=== PATIENT | male | born 1965 | race Caucasian/White ===

== ENCOUNTER 2021-09-13 12:10 | Inpatient (IN) | payer OTHER ==
[~2021-09-13] VITALS: Ht 177.8 cm; Wt 109.3 kg
[~2021-09-13 12:10] MED LIST: ASPIRIN81 MG PO; AUGMENTIN 875-1 EACH PO; CLARITIN10 MG PO; CLEOCIN300 MG PO; FENOFIBRATE48 MG PO; IBUPROFEN800 MG PO; LEVAQUIN500 MG PO; LIPITOR20 MG PO; MEDROL 4MG DOSEP4 MG PO; METFORMIN HCL500 MG PO; NORCO 5-325 TA1 EACH PO; NORVASC2.5 MG PO; PLAVIX75 MG PO; PRILOSEC20 MG PO; PRINIVIL20 MG PO; PROTONIX 40MG T40 MG PO; REVATIO 20MG TA20 MG PO
[2021-09-13 13:06] LABS: BASOPHIL 0.4 % (0-2); EOSINOPHIL 0 % (0-5); HGB 16.3 g/dl (13.2-18.0); LYMPHOCYTE 17.8 % (15-48); MCH 29.7 pg (25.0-31.0); MCHC 32.6 g/dL (32.0-36.0); MCV 91.2 fL (78.0-100.0); MONOCYTE 9.7 % (0-12); MPV 11.4 fL (6.0-9.5); NEUTROPHIL 71.7 % (41-80); NRBC 0; PLT 165 K/uL (150-400); RBC 5.48 M/uL (4.70-6.00); RDW 13.9 % (11.5-14.0); WBC 4.7 K/uL (4.0-10.5)
[2021-09-13 13:21] LABS: ALBUMIN 3.1 g/dL (3.4-5.0); BILIRUBIN - TOTAL 0.4 mg/dL (0.2-1.0); BUN/CREAT RATIO (CALC) 17.1 RATIO; C-REACTIVE PROTEIN 14.9 mg/dL (<=0.90); CREATININE 1.4 mg/dL (0.67-1.17); GLOBULIN (CALCULATION) 4.8 g/dL; POTASSIUM 4.7 mmol/L (3.5-5.1); TOTAL PROTEIN 7.9 g/dL (6.4-8.2)
[2021-09-13 13:37] LABS: LACTIC ACID 4.1 mmol/L (0.4-1.9)
[2021-09-13 13:49] LABS: INFLUENZA A NAA NEGATIVE (NEGATIVE)
[2021-09-13 13:52] LABS: CORONAVIRUS 2019 SARS-COV-2 POSITIVE (NEGATIVE)
[2021-09-13 14:44] LABS: BILIRUBIN NEGATIVE (NEGATIVE); BLOOD TRACE-INTACT Ery/uL (NEGATIVE); CLARITY CLEAR (CLEAR); COLOR YELLOW (YELLOW); GLUCOSE (U) 1+ mg/dL (NORMAL); LEUKOCYTES NEGATIVE Leu/uL (NEGATIVE); NITRITE NEGATIVE (NEGATIVE); PROTEIN 1+ mg/dL (NEGATIVE)
[2021-09-13 15:24] LABS: URINARY WBC RARE
[2021-09-13 15:25] LABS: SQUAMOUS EPITHELIAL CELLS RARE
[2021-09-13] MEDS ORDERED: OZEMPIC1 MG/0.71 SC (18:28)
[2021-09-13] MEDS ORDERED: LOPRESSOR50 MG PO (18:28)
[2021-09-13] MEDS ORDERED: PROTONIX 40MG T40 MG PO (18:29)
[2021-09-13] MEDS ORDERED: CRESTOR40 MG PO (18:29)
[2021-09-13 18:41] LABS: BUN/CREAT RATIO (CALC) 17.4 RATIO; CREATININE 1.09 mg/dL (0.67-1.17); POTASSIUM 4.4 mmol/L (3.5-5.1)
[2021-09-14 06:06] LABS: BASOPHIL 0 % (0-2); EOSINOPHIL 0 % (0-5); HCT 42.5 % (42.0-52.0); HGB 13.8 g/dl (13.2-18.0); LYMPHOCYTE 20.6 % (15-48); MCH 29.2 pg (25.0-31.0); MCHC 32.5 g/dL (32.0-36.0); MCV 89.9 fL (78.0-100.0); MONOCYTE 8.7 % (0-12); MPV 10.7 fL (6.0-9.5); NRBC 0; PLT 154 K/uL (150-400); RBC 4.73 M/uL (4.70-6.00); WBC 2.9 K/uL (4.0-10.5)
[2021-09-14 07:01] LABS: BUN/CREAT RATIO (CALC) 21.2 RATIO; C-REACTIVE PROTEIN 14.5 mg/dL (<=0.90); CREATININE 0.85 mg/dL (0.67-1.17); POTASSIUM 4.3 mmol/L (3.5-5.1)
--- NOTE | 2021-09-14 16:00 | NUR ---
MD WENT TO ASSESS AND TALK TO THE PATIENT ONCE HE WAS MOVED TO ICU. HE NOTICED PT HAD VERY LABORED BREATHING AND TALKED TO HIM ABOUT INTUBATION. PT WAS IN AGREEANCE WITH THIS CHOICE. RT WAS CALLED AND GLIDESCOPE WAS BROUGHT. 1635 ETOMIDATE 20MG ADMINISTERED ALONG WITH 100 OF SUCCINYLCHOLINE. PT WAS STILL MOVING SO ANOTHER 20MG OF ETOMIDATE AND 50MG OF SUCCINYLCHOLINE WERE GIVEN AT 1639. PT WAS SUCCESSFULLY INTUBATED AT 1635 WITH A 7.5 ET TUBE 24CM AT LIP. 5MG VERSED, 50MCG OF FENTANYL, AND 10MG OF VECURONIUM WERE ADMINISTERED BECAUSE PT WAS STILL BREATHING OVER THE VENT. FENTANYL GTT STARTED AT 25MCG/HR AND VERSED GTT AT 3MG/HR AT 1645. OG WAS PLACED AND VERIFIED BY ASCULTATION ONCE MD WAS DONE INTUBATING. 1655 ARTERIAL LINE WAS PLACED IN RIGHT RADIAL. DR. STOLL USED LIDOCAINE FOR THE SITE AND WAS SUCCESSFUL ON THE FIRST ATTEMPT WITH A GOOD ARTERIAL LINE WAVEFORM. 1710 SUPPLIES FOR CENTRAL LIKE WERE GATHERED. DR. STOLL PLACED A CENTRAL LINE TO THE LEFT IJ WITHOUT DIFFICULTY. ET TUBE, OG, AND CENTRAL LINE WERE ALL VERIFIED TO BE IN CORRECT PLACEMENT BY CHEST XRAY. THROUGH THE EVENTS OF THE A-LINE AND CENTRAL LINE BEING PLACED, PT WAS VERY HYPERTENSIVE 200s/100s. SEDATION WAS TITRATED TO A COMFORTABLE LEVEL WHERE FENTANLY IS AT 250MCG/HR AND VERSED IS AT 8MG/HR. PT RESTING PEACEFULLY AT THIS ITME TAYLOR CATH PLACED ONCE ALL OTHER LINES WERE PLACED.
[2021-09-15 04:27] LABS: BASOPHIL 0 % (0-2); EOSINOPHIL 0 % (0-5); HCT 39.2 % (42.0-52.0); HGB 12.4 g/dl (13.2-18.0); MCH 29.3 pg (25.0-31.0); MCHC 31.6 g/dL (32.0-36.0); MCV 92.7 fL (78.0-100.0); MONOCYTE 6.1 % (0-12); MPV 10.7 fL (6.0-9.5); NEUTROPHIL 74.6 % (41-80); NRBC 0; PLT 180 K/uL (150-400); RBC 4.23 M/uL (4.70-6.00); RDW 14.4 % (11.5-14.0); WBC 3.6 K/uL (4.0-10.5)
[2021-09-15 04:48] LABS: LYMPHOCYTE 18.7 % (15-48)
[2021-09-15 04:49] LABS: BUN/CREAT RATIO (CALC) 25.6 RATIO; C-REACTIVE PROTEIN 7.5 mg/dL (<=0.90); CREATININE 0.9 mg/dL (0.67-1.17); MAGNESIUM 2.7 mg/dL (1.8-2.4); POTASSIUM 4.8 mmol/L (3.5-5.1)
--- NOTE | 2021-09-15 19:52 | NUR ---
1500 PT WAS PRONED WITH 5 RN AND RT AT THE HEAD OF THE BED, PT TOLERATED TURN WELL, SATS IMPROVED FROM 88/89% TO 99%
[2021-09-16 05:53] LABS: BASOPHIL 0 % (0-2); EOSINOPHIL 0 % (0-5); HCT 36.2 % (42.0-52.0); HGB 11.3 g/dl (13.2-18.0); LYMPHOCYTE 9.5 % (15-48); MCHC 31.2 g/dL (32.0-36.0); MONOCYTE 6.2 % (0-12); MPV 11.2 fL (6.0-9.5); NEUTROPHIL 83.3 % (41-80); NRBC 0; PLT 222 K/uL (150-400); RBC 3.77 M/uL (4.70-6.00); RDW 14.6 % (11.5-14.0)
[2021-09-16 05:58] LABS: WBC 5.8 K/uL (4.0-10.5)
[2021-09-16 06:26] LABS: ALBUMIN 1.8 g/dL (3.4-5.0); BILIRUBIN - TOTAL 0.1 mg/dL (0.2-1.0); CREATININE 0.8 mg/dL (0.67-1.17); GLOBULIN (CALCULATION) 3.3 g/dL; POTASSIUM 5.2 mmol/L (3.5-5.1)
[2021-09-16 06:27] LABS: TOTAL PROTEIN 5.1 g/dL (6.4-8.2)
[2021-09-17 06:00] LABS: BASOPHIL 0.2 % (0-2); EOSINOPHIL 0 % (0-5); HCT 36.3 % (42.0-52.0); HGB 11.2 g/dl (13.2-18.0); LYMPHOCYTE 7.3 % (15-48); MCH 29.6 pg (25.0-31.0); MCHC 30.9 g/dL (32.0-36.0); MCV 95.8 fL (78.0-100.0); MONOCYTE 5.8 % (0-12); NEUTROPHIL 85.1 % (41-80); NRBC 0; PLT 274 K/uL (150-400); RBC 3.79 M/uL (4.70-6.00); RDW 14.6 % (11.5-14.0)
[2021-09-17 06:10] LABS: ALBUMIN 1.9 g/dL (3.4-5.0); BILIRUBIN - TOTAL 0.1 mg/dL (0.2-1.0); BUN/CREAT RATIO (CALC) 29.6 RATIO; CREATININE 0.71 mg/dL (0.67-1.17); TOTAL PROTEIN 4.9 g/dL (6.4-8.2)
[2021-09-17 06:13] LABS: WBC 5.7 K/uL (4.0-10.5)
--- NOTE | 2021-09-17 17:05 | NUR ---
09/17/21 Will monitor for discharge planning needs.
[2021-09-18 05:42] LABS: BASOPHIL 0.2 % (0-2); EOSINOPHIL 0 % (0-5); HCT 35.3 % (42.0-52.0); HGB 11.2 g/dl (13.2-18.0); LYMPHOCYTE 4.5 % (15-48); MCH 29.6 pg (25.0-31.0); MCHC 31.7 g/dL (32.0-36.0); MCV 93.1 fL (78.0-100.0); MONOCYTE 4.3 % (0-12); MPV 10.6 fL (6.0-9.5); NRBC 0; PLT 299 K/uL (150-400); RBC 3.79 M/uL (4.70-6.00); RDW 14.4 % (11.5-14.0); WBC 6.5 K/uL (4.0-10.5)
[2021-09-18 08:36] LABS: BILIRUBIN - TOTAL 0.3 mg/dL (0.2-1.0); BUN/CREAT RATIO (CALC) 31.9 RATIO; CREATININE 0.69 mg/dL (0.67-1.17); GLOBULIN (CALCULATION) 3.1 g/dL; POTASSIUM 4.9 mmol/L (3.5-5.1); TOTAL PROTEIN 5.1 g/dL (6.4-8.2)
--- NOTE | 2021-09-18 18:46 | NUR ---
1845 PT WAS PRONED, 4RN AND RT AT HEAD OF THE BED.PT TOLERATED TURN WELL SATS INCREASED TO 96%.
[2021-09-19 05:59] LABS: BASOPHIL 0 % (0-2); EOSINOPHIL 0 % (0-5); HCT 35.9 % (42.0-52.0); HGB 11.4 g/dl (13.2-18.0); LYMPHOCYTE 4.7 % (15-48); MCH 29.8 pg (25.0-31.0); MCHC 31.8 g/dL (32.0-36.0); MCV 93.7 fL (78.0-100.0); MONOCYTE 3.5 % (0-12); MPV 10.9 fL (6.0-9.5); NEUTROPHIL 89.2 % (41-80); NRBC 0; PLT 315 K/uL (150-400); RBC 3.83 M/uL (4.70-6.00); RDW 14.4 % (11.5-14.0); WBC 5.7 K/uL (4.0-10.5)
[2021-09-19 06:30] LABS: CREATININE 0.62 mg/dL (0.67-1.17)
[2021-09-19 17:36] LABS: BUN/CREAT RATIO (CALC) 31.8 RATIO; CREATININE 0.66 mg/dL (0.67-1.17); MAGNESIUM 3.1 mg/dL (1.8-2.4); POTASSIUM 4.9 mmol/L (3.5-5.1)
--- NOTE | 2021-09-19 18:30 | NUR ---
ORDERED SEDATION VACATION FOR THIS DATE. SEDATION WAS TURNED DOWN AND PATIENT WAS ABLE TO MOVE LIMBS BUT WOULD NOT FOLLOW COMMANDS. BELIEVE THAT PATIENT NEEDED MORE TIME TO COME TO. SEDATION WAS TURNED BACK ON AND PATIENT WAS ORDERED TO BE PRONED SOON STAFF WAS ABLE TO. STARTED DIPRIVAN INSTEAD OF VERSED. PATIENT IS COMFORTABLE AND NOT RESTLESS.
[2021-09-20 05:23] LABS: BASOPHIL 0.2 % (0-2); EOSINOPHIL 0 % (0-5); HCT 35.3 % (42.0-52.0); LYMPHOCYTE 4.1 % (15-48); MCHC 31.2 g/dL (32.0-36.0); MCV 96.2 fL (78.0-100.0); MONOCYTE 6.3 % (0-12); MPV 10.9 fL (6.0-9.5); NEUTROPHIL 81.7 % (41-80); NRBC 0; PLT 341 K/uL (150-400); RBC 3.67 M/uL (4.70-6.00); RDW 14.6 % (11.5-14.0)
[2021-09-20 05:33] LABS: WBC 5.4 K/uL (4.0-10.5)
[2021-09-20 05:52] LABS: BUN/CREAT RATIO (CALC) 37.5 RATIO; CREATININE 0.64 mg/dL (0.67-1.17); POTASSIUM 5.3 mmol/L (3.5-5.1)
[2021-09-20 15:27] LABS: BUN/CREAT RATIO (CALC) 40.3 RATIO; CREATININE 0.67 mg/dL (0.67-1.17)
--- NOTE | 2021-09-20 17:54 | NUR ---
1645 PT WAS PRONED WITH 3RN AND 2 RT, STEPHY RT AT HEAD OF THE BED. PT TOLERATED THE TURN WELL. BP 153/79,70,25, 94%
[2021-09-21 04:53] LABS: BASOPHIL 0.3 % (0-2); EOSINOPHIL 0.1 % (0-5); HCT 42.7 % (42.0-52.0); LYMPHOCYTE 4.3 % (15-48); MCH 29.3 pg (25.0-31.0); MCHC 30.4 g/dL (32.0-36.0); MCV 96.4 fL (78.0-100.0); MPV 10.8 fL (6.0-9.5); NRBC 0.3; PLT 423 K/uL (150-400); RBC 4.43 M/uL (4.70-6.00); RDW 14.6 % (11.5-14.0)
[2021-09-21 05:06] LABS: BUN/CREAT RATIO (CALC) 43.3 RATIO; CREATININE 0.67 mg/dL (0.67-1.17); POTASSIUM 4.9 mmol/L (3.5-5.1)
--- NOTE | 2021-09-21 19:44 | NUR ---
1210 4 RN AND RT RETURNED PT BACK IN SUPINE, PT TOLERATED WELL
[2021-09-22 04:41] LABS: BASOPHIL 0.3 % (0-2); EOSINOPHIL 0.5 % (0-5); HCT 36.1 % (42.0-52.0); HGB 11.2 g/dl (13.2-18.0); LYMPHOCYTE 4.3 % (15-48); MCH 30.1 pg (25.0-31.0); MONOCYTE 4.8 % (0-12); NEUTROPHIL 86.7 % (41-80); NRBC 0; PLT 310 K/uL (150-400); RBC 3.72 M/uL (4.70-6.00); RDW 14.6 % (11.5-14.0); WBC 6.5 K/uL (4.0-10.5)
[2021-09-22 05:12] LABS: BUN/CREAT RATIO (CALC) 39.7 RATIO; C-REACTIVE PROTEIN 13.4 mg/dL (<=0.90); CREATININE 0.63 mg/dL (0.67-1.17); POTASSIUM 4.7 mmol/L (3.5-5.1)
[2021-09-23 03:28] LABS: BASOPHIL 0.1 % (0-2); EOSINOPHIL 0.8 % (0-5); HCT 34.9 % (42.0-52.0); HGB 10.6 g/dl (13.2-18.0); LYMPHOCYTE 5.1 % (15-48); MCH 29.3 pg (25.0-31.0); MCHC 30.4 g/dL (32.0-36.0); MCV 96.4 fL (78.0-100.0); MPV 10.9 fL (6.0-9.5); NEUTROPHIL 88.5 % (41-80); NRBC 0; PLT 236 K/uL (150-400); RBC 3.62 M/uL (4.70-6.00); RDW 14.4 % (11.5-14.0); WBC 9.6 K/uL (4.0-10.5)
[2021-09-23 03:46] LABS: BUN/CREAT RATIO (CALC) 31.2 RATIO; CREATININE 0.64 mg/dL (0.67-1.17); POTASSIUM 4.7 mmol/L (3.5-5.1)
[2021-09-23 10:06] LABS: LACTIC ACID 0.8 mmol/L (0.4-1.9)
[2021-09-23 14:32] LABS: HGB 10.5 g/dL (13.2-18.0)
--- NOTE | 2021-09-23 19:04 | NUR ---
PRONED PATIENT 1715 WITH RT AT BEDSIDE AND 3 RN TO ASSIST. PATIENT WAS REPOSITIONED. TUBE REMAINED IN PLACE. PLACEMENT CONFIRMED AND HOOKED BACK UP TO MONITOR AND BIS. VEC WAS TURNED ON. NO COMPLICATIONS OCCURRED.
[2021-09-24 03:47] LABS: BASOPHIL 0.2 % (0-2); EOSINOPHIL 0.9 % (0-5); HCT 34.3 % (42.0-52.0); HGB 10.3 g/dl (13.2-18.0); LYMPHOCYTE 8.9 % (15-48); MCH 29.4 pg (25.0-31.0); MONOCYTE 5.5 % (0-12); NEUTROPHIL 82.9 % (41-80); NRBC 0; PLT 210 K/uL (150-400); RDW 14.4 % (11.5-14.0); WBC 11.6 K/uL (4.0-10.5)
[2021-09-24 03:59] LABS: BUN/CREAT RATIO (CALC) 33.3 RATIO; CREATININE 0.66 mg/dL (0.67-1.17)
[2021-09-24 16:51] LABS: BUN/CREAT RATIO (CALC) 27.3 RATIO; CREATININE 0.77 mg/dL (0.67-1.17)
--- NOTE | 2021-09-24 19:37 | NUR ---
PT WENT INTO [facility]TER CONFIRMED WITH EKG, CARD CONSULT WITH ORDERS TO START CARDIZEM GTT,STARTED AT 10MG WITH NO HELP WITH HEART RATE INCREASED TO 15MG/HR STILL NO HELP. CHANGED TO AMIO WITH 150MG BOLUS THEN DRIP AT 33.3ML/HR. HEART RATE CONTINUED TO BE IN THE [address] ARTHUR HE ORDER LOPRESSSER 5 MG IV. PT DID CONVERT TO NSR AROUND 1834 TONIGHT EKG CONFIRMED
[2021-09-25 04:29] LABS: BASOPHIL 0.1 % (0-2); EOSINOPHIL 0.5 % (0-5); HCT 32.9 % (42.0-52.0); HGB 9.9 g/dl (13.2-18.0); LYMPHOCYTE 5.7 % (15-48); MCHC 30.1 g/dL (32.0-36.0); MCV 96.5 fL (78.0-100.0); MONOCYTE 6.8 % (0-12); MPV 10.7 fL (6.0-9.5); NEUTROPHIL 85.2 % (41-80); NRBC 0; PLT 181 K/uL (150-400); RBC 3.41 M/uL (4.70-6.00); RDW 14.6 % (11.5-14.0); WBC 12.6 K/uL (4.0-10.5)
[2021-09-25 05:23] LABS: BUN/CREAT RATIO (CALC) 30.2 RATIO; CREATININE 0.63 mg/dL (0.67-1.17)
--- NOTE | 2021-09-25 18:26 | NUR ---
1730 PT WAS PRONED 4 RN AND STEPHY RT AT THE HEAD OF THE BED. PT TOLERATED THE TURN WELL.O2 SAT 94%.BP 158/76, HR 86
--- NOTE | 2021-09-26 13:31 | NUR ---
PATIENT WAS SUPINED AT 1030 WITH RT AT BEDSIDE. PATIENT TOLERATED WELL. ADJUSTED PATIET IN BED AND RESTRAINTS PLACED. TUBE FEEDS ARE RESUMED. SUCTIONED LARGE AMOUNT OF BLOOD FROM PATIENT NOSE THIS MORNING. DR STOLL MADE AWARE OF SITUATION. ORDERED TO NOT PRONE TODAY. WILL RE-EVALUATE TOMORROW.
--- NOTE | 2021-09-26 19:31 | NUR ---
TITRATED PATIENT SEDATION DIPRIVAN- 30MCG/19.3ML TO 25MCG/16.1 FENTANYL- 200MCG/20ML TO 150MCG/15ML PATIENT BP ELEVATED AND REQUIRED METOPROLOL 50MG AT 1550 BP:201/86 106 TO 166/82 102 92% WAS MADE AWARE OF SITUATION. BP ELEVATED AT TWO SEPERATE TIMES AND APRESOLINE 10MG Q6PRN WAS ADDED TO EMAR PRESSURE STABILIZED TO 127/62 79 BY END OF SHIFT.
[2021-09-27 04:20] LABS: BASOPHIL 0.1 % (0-2); EOSINOPHIL 0.4 % (0-5); HGB 8.3 g/dl (13.2-18.0); LYMPHOCYTE 4.3 % (15-48); MCH 29.7 pg (25.0-31.0); MCHC 30.7 g/dL (32.0-36.0); MCV 96.8 fL (78.0-100.0); NEUTROPHIL 87.7 % (41-80); NRBC 0.2; PLT 157 K/uL (150-400); RBC 2.79 M/uL (4.70-6.00); RDW 14.9 % (11.5-14.0); WBC 12.8 K/uL (4.0-10.5)
[2021-09-27 04:28] LABS: ALBUMIN 0.9 g/dL (3.4-5.0); ALKALINE PHOSHATASE 85 U/L (46-116); ALT 20 U/L (16-63); AST 28 U/L (15-37); BILIRUBIN - TOTAL 0.6 mg/dL (0.2-1.0); BUN 20 mg/dL (7-18); BUN/CREAT RATIO (CALC) 29.4 RATIO; C-REACTIVE PROTEIN > 18.00 mg/dL (<=0.90); CHLORIDE 110 mmol/L (98-107); CO2 (BICARBONATE) 31 mmol/L (21-32); CREATININE 0.68 mg/dL (0.67-1.17); GLOBULIN (CALCULATION) 3.4 g/dL; GLUCOSE 118 mg/dL (74-106); MAGNESIUM 2.5 mg/dL (1.8-2.4); POTASSIUM 3.4 mmol/L (3.5-5.1); TOTAL PROTEIN 4.3 g/dL (6.4-8.2)
[2021-09-28 06:53] LABS: BUN/CREAT RATIO (CALC) 25.3 RATIO; CREATININE 0.87 mg/dL (0.67-1.17); POTASSIUM 4.2 mmol/L (3.5-5.1)
[2021-09-28 08:53] LABS: BILIRUBIN NEGATIVE (NEGATIVE); BLOOD 1+ Ery/uL (NEGATIVE); CLARITY CLEAR (CLEAR); COLOR YELLOW (YELLOW); GLUCOSE (U) NORMAL (NORMAL); LEUKOCYTES NEGATIVE Leu/uL (NEGATIVE); NITRITE NEGATIVE (NEGATIVE); PROTEIN TRACE (LOW) mg/dL (NEGATIVE); UROBILINOGEN 0.2 mg/dL (0.2-1.0)
[2021-09-28 09:01] LABS: BASOPHIL 0.1 % (0-2); EOSINOPHIL 0.5 % (0-5); HCT 29.7 % (42.0-52.0); HGB 8.9 g/dl (13.2-18.0); LYMPHOCYTE 4.6 % (15-48); MCH 29.5 pg (25.0-31.0); MCV 98.3 fL (78.0-100.0); MONOCYTE 5.7 % (0-12); NEUTROPHIL 86.9 % (41-80); NRBC 0; PLT 163 K/uL (150-400); RBC 3.02 M/uL (4.70-6.00); RDW 15.4 % (11.5-14.0); WBC 13.6 K/uL (4.0-10.5)
[2021-09-28 09:13] LABS: AMORPHOUS URATES CRYSTALS TRACE; URINARY RBC RARE; URINARY WBC RARE
--- NOTE | 2021-09-28 18:02 | NUR ---
PT PRONED WITH ASSIST OF VINYL TOP INSTALLER AND RT WELL THIS NURSE AND 2 OTHER NURSES, PT TOLERATED WELL AND WILL CONTINUE TO MONITOR STATUS
[2021-09-29 06:12] LABS: BASOPHIL 0.4 % (0-2); EOSINOPHIL 1.1 % (0-5); HCT 29.9 % (42.0-52.0); LYMPHOCYTE 6.2 % (15-48); MCH 29.6 pg (25.0-31.0); MCHC 30.1 g/dL (32.0-36.0); MCV 98.4 fL (78.0-100.0); MONOCYTE 4.6 % (0-12); NEUTROPHIL 85.9 % (41-80); NRBC 0.4; PLT 158 K/uL (150-400); RBC 3.04 M/uL (4.70-6.00); RDW 15.6 % (11.5-14.0); WBC 8.1 K/uL (4.0-10.5)
[2021-09-29 06:45] LABS: BILIRUBIN - TOTAL 0.6 mg/dL (0.2-1.0); BUN/CREAT RATIO (CALC) 32.9 RATIO; CREATININE 0.79 mg/dL (0.67-1.17); GLOBULIN (CALCULATION) 4.9 g/dL; POTASSIUM 4.8 mmol/L (3.5-5.1); TOTAL PROTEIN 5.9 g/dL (6.4-8.2)
--- NOTE | 2021-09-29 10:52 | NUR ---
1015 PT TURNED BACK TO SUPINE POSITION, RT AT THE HEAD OF BED AND 5 RNS TO POSITION. MD STOLL SAID TO TURN OFF THR VECURONIUM. OFF AT 1030
[2021-10-01 06:27] LABS: BASOPHIL 0.3 % (0-2); EOSINOPHIL 0.6 % (0-5); HCT 32.1 % (42.0-52.0); HGB 9.5 g/dl (13.2-18.0); LYMPHOCYTE 4.7 % (15-48); MCH 29.8 pg (25.0-31.0); MCHC 29.6 g/dL (32.0-36.0); MCV 100.6 fL (78.0-100.0); MPV 10.9 fL (6.0-9.5); NEUTROPHIL 89.6 % (41-80); NRBC 0.5; PLT 161 K/uL (150-400); RBC 3.19 M/uL (4.70-6.00); RDW 15.8 % (11.5-14.0)
[2021-10-01 06:30] LABS: WBC 15.6 K/uL (4.0-10.5)
[2021-10-01 06:51] LABS: ALBUMIN 1.3 g/dL (3.4-5.0); BILIRUBIN - TOTAL 0.3 mg/dL (0.2-1.0); BUN/CREAT RATIO (CALC) 32.1 RATIO; C-REACTIVE PROTEIN 6.3 mg/dL (<=0.90); CREATININE 0.81 mg/dL (0.67-1.17); GLOBULIN (CALCULATION) 3.9 g/dL; MAGNESIUM 2.1 mg/dL (1.8-2.4); POTASSIUM 4.6 mmol/L (3.5-5.1); TOTAL PROTEIN 5.2 g/dL (6.4-8.2)
[2021-10-02 06:00] LABS: BASOPHIL 0.3 % (0-2); EOSINOPHIL 1.2 % (0-5); HCT 29.9 % (42.0-52.0); HGB 8.9 g/dl (13.2-18.0); LYMPHOCYTE 7.1 % (15-48); MCH 29.8 pg (25.0-31.0); MCHC 29.8 g/dL (32.0-36.0); MONOCYTE 4.8 % (0-12); MPV 10.7 fL (6.0-9.5); NEUTROPHIL 85.2 % (41-80); NRBC 0.8; PLT 147 K/uL (150-400); RBC 2.99 M/uL (4.70-6.00); RDW 15.8 % (11.5-14.0); WBC 12.6 K/uL (4.0-10.5)
[2021-10-02 06:27] LABS: ALBUMIN 1.4 g/dL (3.4-5.0); BILIRUBIN - TOTAL 0.4 mg/dL (0.2-1.0); BUN/CREAT RATIO (CALC) 41.8 RATIO; CREATININE 0.79 mg/dL (0.67-1.17); GLOBULIN (CALCULATION) 3.7 g/dL; POTASSIUM 3.9 mmol/L (3.5-5.1); TOTAL PROTEIN 5.1 g/dL (6.4-8.2)
--- NOTE | 2021-10-02 18:09 | NUR ---
1600 PT PRONED 4 RN AND RT AT THE HEAD OF BED. 1700 PT VENTILATOR STARTED ALARMING FOR DISCONNECTED ALRAM , MYSELF AND TYRESE RT WAS IN THE RM SATS WAS ONLY DROPPED TO 91%. WE THEN CHANGED HIS POSITION BACK TO SUPINE. REPOSOITIONED HIS ET TUBE. AND GOT A CHEST XRAY. MD ARTHUR SAID TO ADVANCE THE TUBE. RELOOKED AT CHEST XRAY, COULD SEE TUBE ON XRAY. YUKO SAID SHE DIDNT THINK THE BALOON WAS INFALATING ALL THE WAS SO DR ARTHUR REPLACED ET TUBE WITH A BOUGE.PLACED A 7.5 ET TUBE 23 AT THE LIP VERFIED PLACEMENT WITH COLOR CHANGE AND CHEST XRAY.
--- NOTE | 2021-10-03 02:34 | NUR ---
10/02/21 2100: PT NOTED TO BEGIN DESATTING WHILE ON VENT FROM 85%-87%. PREVIOUSLY PT SAT RANGED FROM 88-89%. BLOOD PRESSURE ALSO BEGGING TO DOWN AT 88/53 (63). CATHERINE JI APRN NOTIFIED OF CURRENT VITAL SIGNS AND CAME OVER TO ICU TO ASSESS PATIENT. ORDERED FOR RT TO GIVE PRN INHALERS. 215: VITAL SIGNS B/P 90/48, HR 112, RR 30, SAT 85%. 222: VITAL SIGNS B/P 56/31, HR 97, RR 30, SAT 83% 2245: PT WENT INTO ASYSTOLE, CODE BUTTON HIT. AED HOOKED UP, CPR IMMEDIATLY STARTED. 1ST DOSE EPI GIVEN 2247: PULSE CHECK. ASYSTOLE. RESTART CPR. 2248: 2ND DOSE EPI GIVEN. 2249: PULSE CHECK. CARDIAC MONINTOR SHOWS ST. HR 150'S. B/P 220/130 FAMILY NOTIFIED DURING CODE VIA MED SURG NURSE. TRAINING AND QUALITY MANAGER AT BEDSIDE DURING CODE. CINDER SNAPPER NOTIFIED. 2331: VITAL SIGNS 53/28, HR 78, RR 30, SAT 82 2333: PT GOES BACK INTO ASYSTOLE. CODE BUTTON PUSHED. CPR STARTED. 1ST DOSE EPI GIVEN. AED STILL ATTACHED. 2335: PULSE CHECK. NO PULSE, MONITOR SHOWS OEA. RESTART CPR. 2336: 2ND DOSE OF EPI GIVEN. 2337: PULSE CHECK. SVT 160'S. B/P 198/98 2340: ART LINE PLACED VIA ED DOCTOR. LEVOPHED/EPI GTT STARTED. FAMILY NOTIFIED OF SECOND ROUND OF CPR VIA MED SURG NURSE. 2351: VITAL SIGNS B/P 67/21, HR 64. RR 30, SAT 43%. 0001: PT GOES BACK INTO ASYSTOLE. CALLED PER MEDSURG NURSE. 1ST DOSE OF EPI GIVEN. 0003: PULSE CHECK. ASYSTOLE. 0004. PT'S REQUESTED CODE TO BE STOPPED AT THIS TIME. 0005 PT PRONOUNCED BY CATHERINE JI APRN. [place] NOTIFIED, RULE OUT DUE TO COVID. [facility] NOTIFIED. PATIENT CLEANED UP. ARRIVES AT BEDSIDE AT APPROXIATLY 0115. ALL BELONGINGS SENT WITH . HOME ARRIVES AT 0215. PT LEAVES W/ HOME AT 0225.
== END 2021-10-03 02:21 | disposition expired | DRG 870 ==
LOC: FER 12:10 → FICU 14:59 → FTCU 14:59 → FICU 09-14 10:39
PROVIDERS: Emergency Medicine; Family Medicine; Internal Medicine; ADMIT Allergy & Immunology Allergy
PROC: 02HV33Z Insertion of Infusion Device into Superior Vena Cava, Percutaneous Approach (ICD-10-PCS; principal; 2021-09-14)
PROC: 5A1955Z Respiratory Ventilation, Greater than 96 Consecutive Hours (ICD-10-PCS; 2021-09-14)
PROC: 8E0ZXY6 Isolation (ICD-10-PCS; 2021-09-14)
PROC: XW033E5 Introduction of Remdesivir Anti-infective into Peripheral Vein, Percutaneous Approach, New Technology Group 5 (ICD-10-PCS; 2021-09-14)
PROC: 3E0333Z Introduction of Anti-inflammatory into Peripheral Vein, Percutaneous Approach (ICD-10-PCS; 2021-09-14)
PROC: XW0DXM6 Introduction of Baricitinib into Mouth and Pharynx, External Approach, New Technology Group 6 (ICD-10-PCS; 2021-09-14)
PROC: 0BH17EZ Insertion of Endotracheal Airway into Trachea, Via Natural or Artificial Opening (ICD-10-PCS; 2021-09-14)
PROC: 03HY32Z Insertion of Monitoring Device into Upper Artery, Percutaneous Approach (ICD-10-PCS; 2021-09-14)
PROC: XW033H5 Introduction of Tocilizumab into Peripheral Vein, Percutaneous Approach, New Technology Group 5 (ICD-10-PCS; 2021-09-14)
PROC: 3E033XZ Introduction of Vasopressor into Peripheral Vein, Percutaneous Approach (ICD-10-PCS; 2021-09-29)
PROC: B24BZZZ Ultrasonography of Heart with Aorta (ICD-10-PCS; 2021-10-01)
PROC: 02HV33Z Insertion of Infusion Device into Superior Vena Cava, Percutaneous Approach (ICD-10-PCS; 2021-10-02)
PROC: B548ZZA Ultrasonography of Superior Vena Cava, Guidance (ICD-10-PCS; 2021-10-02)
PROC: 03HY32Z Insertion of Monitoring Device into Upper Artery, Percutaneous Approach (ICD-10-PCS; 2021-10-02)
PROC: XW033H5 Introduction of Tocilizumab into Peripheral Vein, Percutaneous Approach, New Technology Group 5 (ICD-10-PCS; 2021-10-02)
PROC: 5A12012 Performance of Cardiac Output, Single, Manual (ICD-10-PCS; 2021-10-02)
DX: A41.89 Other specified sepsis (principal); U07.1 COVID-19; J12.82 Pneumonia due to coronavirus disease 2019; I26.99 Other pulmonary embolism without acute cor pulmonale; J80 Acute respiratory distress syndrome; I50.31 Acute diastolic (congestive) heart failure; E11.10 Type 2 diabetes mellitus with ketoacidosis without coma; R65.21 Severe sepsis with septic shock; N17.9 Acute kidney failure, unspecified; J95.851 Ventilator associated pneumonia; K92.2 Gastrointestinal hemorrhage, unspecified; A41.01 Sepsis due to Methicillin susceptible Staphylococcus aureus; I48.91 Unspecified atrial fibrillation; I46.9 Cardiac arrest, cause unspecified; I25.10 Atherosclerotic heart disease of native coronary artery without angina pectoris; E78.5 Hyperlipidemia, unspecified; K21.9 Gastro-esophageal reflux disease without esophagitis; Z96.651 Presence of right artificial knee joint; T38.0X5A Adverse effect of glucocorticoids and synthetic analogues, initial encounter; E87.6 Hypokalemia; E66.9 Obesity, unspecified; D64.9 Anemia, unspecified; R04.0 Epistaxis; E87.5 Hyperkalemia; K59.03 Drug induced constipation; E11.649 Type 2 diabetes mellitus with hypoglycemia without coma; I11.0 Hypertensive heart disease with heart failure; L27.0 Generalized skin eruption due to drugs and medicaments taken internally; J43.9 Emphysema, unspecified; Y83.8 Other surgical procedures as the cause of abnormal reaction of the patient, or of later complication, without mention of misadventure at the time of the procedure; Z98.890 Other specified postprocedural states; Z87.891 Personal history of nicotine dependence; Z79.01 Long term (current) use of anticoagulants; Z95.5 Presence of coronary angioplasty implant and graft; Z90.49 Acquired absence of other specified parts of digestive tract; Z82.49 Family history of ischemic heart disease and other diseases of the circulatory system; Z83.3 Family history of diabetes mellitus; Z88.8 Allergy status to other drugs, medicaments and biological substances; Z79.84 Long term (current) use of oral hypoglycemic drugs; Z79.02 Long term (current) use of antithrombotics/antiplatelets; Z79.899 Other long term (current) drug therapy; Z82.3 Family history of stroke; Z23 Encounter for immunization
CPT/HCPCS: 36415; 36600; 70450; 71045; 71275; 74018; 80048; 80053; 80202; 81001; 82009; 82728; 82803; 82962; 83605; 83735; 83880; 84145; 84484; 85018; 85025; 85379; 85730; 86140; 86141; 87040; 87070; 87077; 87088; 87186; 87205; 92950; 93005; 94002; 94640; 94762; C1751; C9113; C9399; J0171; J0282; J0330; J0360; J0456; J0692; J0696; J1100; J1200; J1644; J1650; J1815; J1940; J1956; J2250; J2310; J2370; J2543; J2704; J3010; J3262; J3370; J3490; J7030; J7040; J7050; J7060; J7070; J7120; Q9967; U0002